=== PATIENT | female | born 1985 | race Caucasian/White ===

== ENCOUNTER 2020-01-13 18:08 | Emergency (ER) | payer OTHER ==
--- NOTE | 2020-01-13 18:19 | PDOC ---
Rapid Medical Evaluation Time Seen by Provider: 01/13/20 18:17 Medical Evaluation: Allergies Allergy/AdvReac Type Severity Reaction Status Date / Time No Known Allergies Allergy Verified 08/13/19 08:48 01/13/20 18:17 I have performed a brief in-person examination on this patient. CC: left pelvic pain radiating to left flank x "days" PE: Left CVAT. left pelvic pain to palpation. Orders: urine Patient will proceed to ED for further evaluation. Discharge Disposition - Diagnosis Left flank pain - Referrals - Patient Instructions - Post Discharge Activity
[2020-01-13 18:21] VITALS: BP 145/94; TEMP 99.3; BMI 39.6
[2020-01-13] MEDS ORDERED: SODIUM CHLORIDE 0.9% 500 ML INFUS.BAG IV ONE (20:09)
[2020-01-13] MEDS ORDERED: ACETAMINOPHEN 1000 MG/100 ML VIAL (NON FORMULARY) IVPB ONE (20:09)
--- NOTE | 2020-01-13 20:10 | PDOC ---
History of Present Illness - General Chief Complaint: Pain Stated Complaint: PELVIC PAIN Time Seen by Provider: 01/13/20 18:17 History Source: Patient - History of Present Illness Initial Comments: 01/13/20 23:41 34-year-old female complaining of left pelvic pain, urinary frequency and left flank pain for the last 2 to 3 days. Denies fever/chills patient reports nausea. Patient denies abdominal pain. Patient has a history of hydronephrosis, diabetes currently not on medication has been prescribed metformin, UTI, kidney stones. 01/13/20 23:42 Past History - Medical History Allergies/Adverse Reactions: Allergies Allergy/AdvReac Type Severity Reaction Status Date / Time No Known Allergies Allergy Verified 01/13/20 18:17 Home Medications: Ambulatory Orders Vit No.130/Iron/Folic [ Vitamins] 1 each PO DAILY 12/18/13 Loratadine [Claritin] 10 mg PO DAILY #12 tablet 08/13/19 predniSONE [Deltasone -] 20 mg PO ASDIR #11 tablet 08/13/19 Cefuroxime Axetil [Cefuroxime] 500 mg PO BID #20 tablet 01/13/20 Anemia: No Asthma: No Cancer: No Cardiac Disorders: No CVA: No COPD: No CHF: No Dementia: No Diabetes: Yes (GESTATIONAL-DIET CONTROL) GI Disorders: No Disorders: No HTN: Yes (MILD PREECLAMPSIA) Hypercholesterolemia: No Kidney Stones: Yes Liver Disease: No Seizures: No Thyroid Disease: No - Surgical History Abdominal Surgery: No Appendectomy: No Cardiac Surgery: No Cholecystectomy: No Lung Surgery: No Neurologic Surgery: No Orthopedic Surgery: No - Reproductive History Is Patient Now?: No (#): 2 Para: 1 Cervical CA: No Dysfunctional Uterine Bleeding: No Ectopic : No Endometrial CA: No Endometriosis: No Ovarian CA: No Polycystic Ovaries: No Therapeutic (s) & number: Yes (2) Spontaneous : 0 - Immunization History Immunization Up to Date: Yes - Psycho-Social/Smoking History Smoking Status: No Smoking History: Never smoked Have you smoked in the past 12 months: No Number of Cigarettes Smoked Daily: 0 - Substance Abuse Hx (Audit-C & DAST Scrn) How often the patient has a drink containing alcohol: Never Score: In Men: 4 or > Positive; In Women: 3 or > Positive: 0 Screen Result (Pos requires Nsg. Audit-10AR): Negative In the last yr the pt used illegal drug/Rx for NonMed reason: No Score: Yes response is considered Positive: 0 Screen Result (Positive result requires Nsg. DAST-10): Negative *Physical Exam - Vital Signs Last Vital Signs Temp Pulse Resp BP Pulse Ox 99.3 F 104 H 18 145/94 100 01/13/20 18:18 01/13/20 18:18 01/13/20 18:18 01/13/20 18:18 01/13/20 18:18 - Physical Exam General Appearance: Yes: Appropriately Dressed Respiratory/Chest: positive: Lungs Clear, Normal Breath Sounds Cardiovascular: positive: Regular Rhythm, Regular Rate Female Pelvic Exam: positive: normal external exam, cervical os closed, adnexal tenderness (left adnexal tenderness) Gastrointestinal/Abdominal: positive: Normal Bowel Sounds, Soft. negative: Tender Musculoskeletal: positive: CVA Tenderness (L) Extremity: positive: Normal Capillary Refill, Normal Inspection Integumentary: positive: Normal Color, Dry, Warm Neurologic: positive: Fully Oriented, Alert, Normal Mood/Affect ED Treatment Course - LABORATORY CBC & Chemistry Diagram: 01/13/20 20:00 01/13/20 20:00 ED Progress Note - Progress Note Progress Note: 01/14/20 02:26 A: UTI; flank pain P: cbc cmp LFTS elevated: patient reports that has a history of blood LFTs being elevated. TVUS 01/14/20 02:27 Discharge - Discharge Information Problems reviewed: Yes Clinical Impression/Diagnosis: Left flank pain UTI (urinary tract infection) Qualifiers: Urinary tract infection type: acute cystitis Hematuria presence: without hematuria Qualified Code(s): N30.00 - Acute cystitis without hematuria Ovarian cyst Qualifiers: Laterality: bilateral Qualified Code(s): N83.201 - Unspecified ovarian cyst, right side Condition: Improved Disposition: HOME - Additional Discharge Information Prescriptions: Cefuroxime Axetil [Cefuroxime] 500 mg PO BID #20 tablet - Follow up/Referral - Patient Discharge Instructions Patient Printed Discharge Instructions: Urinary Tract Infection Additional Instructions: Drink plenty of fluids Take ibuprofen every 6 hours as needed for pain Take cefuroxime as prescribed Follow-up with your primary care doctor as soon as possible. You need to repeat urine test once your antibiotic is completed. We will call you if you're antibiotic needs to be changed. - Post Discharge Activity Work/Back to School Note: Back to Work
[2020-01-13] MEDS ORDERED: ACETAMINOPHEN INJECTION 100 ML IVPB ONE (20:14)
[2020-01-13 21:06] LABS: BASO % 0.8 % (0-2.0); EOS % 5.6 % (0-4.5); HEMATOCRIT 40.3 % (32.4-45.2); HEMOGLOBIN 12.9 GM/dL (10.7-15.3); LYMPH % 27.5 % (8-40); MCH 23.4 pg (25.7-33.7); MCHC 32.1 g/dl (32.0-36.0); MEAN CELL VOLUME 72.8 fl (80-96); MONO % 4.9 % (3.8-10.2); NEUT % 61.2 % (42.8-82.8); PLATELET COUNT 461 K/MM3 (134-434); RBC 5.54 M/mm3 (3.60-5.2); RDW 15.5 % (11.6-15.6); WHITE BLOOD COUNT 14.1 K/mm3 (4.0-10.0)
[2020-01-13 21:14] LABS: BILIRUBIN,TOTAL 0.3 mg/dL (0.2-1); BLOOD UREA NITROGEN 6.8 mg/dL (7-18); CALCIUM 9.4 mg/dL (8.5-10.1); CREATININE 0.7 mg/dL (0.55-1.3); POTASSIUM 4.4 mmol/L (3.5-5.1); TOT PROT 8.9 g/dl (6.4-8.2)
[2020-01-13 21:23] LABS: EPI CELLS >36 /uL (0-25.1); HCG,QUALITATIVE URINE Negative; HYALINE CASTS 4 /uL (0-3.1); URINE APPEARANCE CLOUDY; URINE BACTERIA 143 /uL (0-1359); URINE BILIRUBIN NEGATIVE (NEGATIVE); URINE COLOR YELLOW; URINE GLUCOSE (UA) 2+ (NEGATIVE); URINE KETONE TRACE (NEGATIVE); URINE LEUK ESTERASE NEGATIVE (NEGATIVE); URINE NITRITE NEGATIVE (NEGATIVE); URINE PROTEIN 2+ (NEGATIVE); URINE RBC 12 /uL (0-23.9); URINE UROBILINOGEN 0.2 mg/dL (0.2-1.0); URINE WBC 44 /uL (0-25.8)
[2020-01-13] MEDS ORDERED: CEFTRIAXONE 1,000 MG in DEXTROSE 5%-WATER - 50 ML IVPB ONE (22:58)
[2020-01-13] MEDS ORDERED: cefTRIAXone SODIUM 1 GM VIAL ONE (23:16)
[2020-01-14 00:03] VITALS: PULSE 95
== END 2020-01-14 00:13 | disposition home or self-care (01) ==
LOC: JER 18:08
PROC: 3E03329 Introduction of Other Anti-infective into Peripheral Vein, Percutaneous Approach (ICD-10-PCS; principal; 2020-01-13)
PROC: 3E033GC Introduction of Other Therapeutic Substance into Peripheral Vein, Percutaneous Approach (ICD-10-PCS; 2020-01-13)
DX: N30.00 Acute cystitis without hematuria (principal); N83.201 Unspecified ovarian cyst, right side
CPT/HCPCS: 36415; 76830-TC; 80053; 81003; 84703; 85025; 87077; 87086; 99284-25; J0131

== ENCOUNTER 2020-01-16 19:44 | Inpatient (IN) | payer OTHER ==
[2020-01-16 19:55] VITALS: BMI 39.6
--- OUTSIDE RECORDS SUMMARY | 2020-01-16 20:12 | XMS ---
:1985 Author Organization [facility] Support Name Relationship Address Phone KHARI GOODEN PARTNER [address] [place] [address] [address] ALERT [place] [address] [place] [address] NERY MULTANI MOTHER [address] [phone] [place] [address] NERY MULTANI Unavailable [address] [place] [address] Re-disclosure Warning The records that you are about to access may contain information from federally- assisted alcohol or drug abuse programs. If such information is present, then the following federally mandated warning applies: This information has been disclosed to you from records protected by federal confidentiality rules (42 CFR part 2). The federal rules prohibit you from making any further disclosure of this information unless further disclosure is expressly permitted by the written consent of the person to whom it pertains or as otherwise permitted by 42 CFR part 2. A general authorization for the release of medical or other information is NOT sufficient for this purpose. The Federal rules restrict any use of the information to criminally investigate or prosecute any alcohol or drug abuse patient.The records that you are about to access may contain highly sensitive health information, the redisclosure of which is protected by Article 27-F of the [place] State Public Health law. If you continue you may haveaccess to information: Regarding HIV / AIDS; Provided by facilities licensed or operated by the [facility] Office of Mental Health; or Provided by the [facility] Office for People With Developmental Disabilities. If such information is present, then the following [facility] mandated warning applies: This information has been disclosed to you from confidential records which are protected by state law. State law prohibits you from making any further disclosure of this information without the specific written consent of the person to whom it pertains, or as otherwise permitted by law. Any unauthorized further disclosure in violation of state law may result in a fine or snf sentence or both. A general authorization for the release of medical or other information is NOT sufficient authorization for further disclosure. Insurance Providers Payer name Policy type Policy ID Covered Covered republican's Policy P jacky / Coverage republican ID relationship to Dietrich Inf ormation type dietrich [facility] [id number] [place] [id number] [facility] [id number] [employer] [id number] SP [id number] EXCHANGE HREP Results ID Date Data Source [id number] 09/25/2019 09:54:00 AM EDT [facility] Name Value Range Interpretation Description Data Sup porting Code Source(s) Document(s ) SARS [facility] CORONAVIRUS 2 RNA This lab was ordered by [facility] and reported by [facility]. ID Date Data Source [id number] 09/20/2019 11:41:00 AM EDT [facility] Name Value Range Interpretation Code Description Data Edith rce(s) Supporting Document(s ) COV2 [facility] This lab was ordered by MARILEE lowe nd reported by [facility]. ID Date Data Source [id number] 09/12/2019 07:40:00 AM EDT [facility] Name Value Range Interpretation Code Description Data Edith rce(s) Supporting Document(s ) COV2 [facility] This lab was ordered by MARILEE lowe nd reported by [facility]. ID Date Data Source [id number] 09/02/2019 09:25:00 AM EDT [facility] Name Value Range Interpretation Code Description Data Edith rce(s) Supporting Document(s ) COV2 [facility] This lab was ordered by MARILEE lowe nd reported by [facility]. ID Date Data Source [id number] 08/13/2019 11:02:00 AM EDT [facility] Name Value Range Interpretation Code Description Data Edith rce(s) Supporting Document(s ) COV2 [facility] This lab was ordered by MARILEE lowe nd reported by [facility]. Procedure
--- NOTE | 2020-01-16 21:39 | PDOC ---
History of Present Illness - General Chief Complaint: Pain, Acute Stated Complaint: LT SIDE ABD PAIN Time Seen by Provider: 01/16/20 21:27 Past History - Medical History Allergies/Adverse Reactions: Allergies Allergy/AdvReac Type Severity Reaction Status Date / Time No Known Allergies Allergy Verified 01/13/20 18:17 Home Medications: Ambulatory Orders Vit No.130/Iron/Folic [ Vitamins] 1 each PO DAILY 12/18/13 Loratadine [Claritin] 10 mg PO DAILY #12 tablet 08/13/19 predniSONE [Deltasone -] 20 mg PO ASDIR #11 tablet 08/13/19 Cefuroxime Axetil [Cefuroxime] 500 mg PO BID #20 tablet 01/13/20 Anemia: No Asthma: No Cancer: No Cardiac Disorders: No CVA: No COPD: No CHF: No Dementia: No Diabetes: Yes (GESTATIONAL-DIET CONTROL) GI Disorders: No Disorders: No HTN: Yes (MILD PREECLAMPSIA) Hypercholesterolemia: No Kidney Stones: Yes Liver Disease: No Seizures: No Thyroid Disease: No - Surgical History Abdominal Surgery: No Appendectomy: No Cardiac Surgery: No Cholecystectomy: No Lung Surgery: No Neurologic Surgery: No Orthopedic Surgery: No - Reproductive History Is Patient Now?: No (#): 2 Para: 1 Cervical CA: No Dysfunctional Uterine Bleeding: No Ectopic : No Endometrial CA: No Endometriosis: No Ovarian CA: No Polycystic Ovaries: No Therapeutic (s) & number: Yes (2) Spontaneous : 0 - Immunization History Immunization Up to Date: Yes - Psycho-Social/Smoking History Smoking Status: No Smoking History: Never smoked Have you smoked in the past 12 months: No Number of Cigarettes Smoked Daily: 0 - Substance Abuse Hx (Audit-C & DAST Scrn) How often the patient has a drink containing alcohol: Never Score: In Men: 4 or > Positive; In Women: 3 or > Positive: 0 Screen Result (Pos requires Nsg. Audit-10AR): Negative In the last yr the pt used illegal drug/Rx for NonMed reason: No Score: Yes response is considered Positive: 0 Screen Result (Positive result requires Nsg. DAST-10): Negative *Physical Exam - Vital Signs Last Vital Signs Temp Pulse Resp BP Pulse Ox 99 F 120 H 19 160/96 98 01/16/20 19:52 01/16/20 19:52 01/16/20 19:52 01/16/20 19:52 01/16/20 19:52 ED Treatment Course - LABORATORY CBC & Chemistry Diagram: 01/16/20 22:00 01/16/20 22:00 Medical Decision Making - Medical Decision Making 01/16/20 22:19 HPI: 34yo F hx hydronephrosis of L kidney (hx duplicated ureters s/p surgery as infant), DM (currently not on medication, has been prescribed metformin), frequent UTIs/pyelo (usually prescribed macrobid or bactrim if UTI; states has resistance to ciprofloxacin and levofloxacin when has pyelo but does not remembe r which med works for her; last UTI 1mo ago), hx multiple L-sided kidney stones (s/p stents and lithotripsies), and recent ED visit 01/13/20 for L-sided pain presents from home for continued L-sided pain and generalized weakness. Pt states pain is constant gradual onset no improvement with tylenol (last @1800) or motrin (last this AM) L-sided pain from L kidney/flank to LLQ area nonradiating nonmoving. Denies hematuria or dysuria or frequency, but states urinating less and concerned for obstruction. States pain feels like her usual chronic intermittent L-sided pressure type pain that she gets when her kidney gets swollen from unknown cause and it normally resolves on its own, whereas this time it's going longer than usual and is worse than usual. Denies F/C, N/V, vaginal bleeding or discharge or pain, CP, SOB, sick contacts, trauma. 01/13/20 visit: -TVUS simple cyst/dominant follicle in L ovary measuring 1.9 x 1.4cm, normal vascular flow in both ovaries w/o e/o torsion. -Labs notable for WBC 14.1, elevated LFTs, UA contaminated but possible UTI and 12 RBCs. UC contaminated, multiple organisms present, probable colonization strep agalactiae group B -Discharge on cefuroxime which pt has been taking, last took at 0900 this AM Urologist: Dr Abdulaziz Choudhary in [place] PCP: in [place] PE: L CVA tenderness Benign abdomen Tachycardic -CBC,CMP,UA/UC -US bladder/kidneys -Toradol -1L NS 01/16/20 22:27 Labs reviewed. WBC increased from 14.1 to 17.8, elevated LFTs, glucose 324, UA negative for UTI (but been taking abx x3 days) 01/17/20 02:09 US reviewed: moderate to severe hydronephrosis L kidney CT reviewed: chronic left hydronephrosis. If there is clinical suspicion for pyelo, correlate with UA or CT w/IV contrast. Due to complicated L kidney hx/medical issues and rising WBC count and continued pain despite outpatient antibiotics, high concern for pyelonephritis. Will admit for IV antibiotics. -EKG -Ceftriaxone Discharge - Discharge Information Problems reviewed: Yes Clinical Impression/Diagnosis: Left flank pain, Leukocytosis, Pyelonephritis Condition: Stable - Admission Yes - Follow up/Referral - Patient Discharge Instructions - Post Discharge Activity
[2020-01-16] MEDS ORDERED: SODIUM CHLORIDE 0.9% 500 ML INFUS.BAG IV ONE (22:07)
[2020-01-16] MEDS ORDERED: KETOROLAC TROMETHAMINE 15 MG/ML VIAL IVPUSH ONE (22:07)
[2020-01-16] MEDS ORDERED: KETOROLAC TROMETHAMINE 15 MG/ML VIAL ONE (22:09)
[2020-01-16 22:22] LABS: EOS % 3.8 % (0-4.5); HEMOGLOBIN 13.3 GM/dL (10.7-15.3); LYMPH % 21.8 % (8-40); MCH 23.3 pg (25.7-33.7); MCHC 32.5 g/dl (32.0-36.0); MEAN CELL VOLUME 71.6 fl (80-96); MEAN PLT VOLUME 7.5 fl (7.5-11.1); MONO % 5.3 % (3.8-10.2); NEUT % 68.1 % (42.8-82.8); PLATELET COUNT 489 K/MM3 (134-434); RBC 5.72 M/mm3 (3.60-5.2); RDW 15.2 % (11.6-15.6); WHITE BLOOD COUNT 17.8 K/mm3 (4.0-10.0)
[2020-01-16 22:46] LABS: EPI CELLS 17 /uL (0-25.1); HCG,QUALITATIVE URINE NEGATIVE; HYALINE CASTS 2 /uL (0-3.1); URINE APPEARANCE CLEAR; URINE BACTERIA 37 /uL (0-1359); URINE BILIRUBIN NEGATIVE (NEGATIVE); URINE COLOR YELLOW; URINE GLUCOSE (UA) 3+ (NEGATIVE); URINE KETONE TRACE (NEGATIVE); URINE LEUK ESTERASE NEGATIVE (NEGATIVE); URINE NITRITE NEGATIVE (NEGATIVE); URINE PROTEIN 1+ (NEGATIVE); URINE RBC 8 /uL (0-23.9); URINE UROBILINOGEN 0.2 mg/dL (0.2-1.0); URINE WBC 7 /uL (0-25.8)
--- NOTE | 2020-01-16 22:50 | PDOC ---
Documentation entered by Isabel Merino SCRIBE, acting as scribe for Cristal Cao DO. Cristal Cao, : This documentation has been prepared by the Wilber bernard Brenda, SCRIBE, under my direction and personally reviewed by me in its entirety. I confirm that the documentation accurately reflects all work, treatment, procedures, and medical decision making performed by me. Attending Attestation - Resident Resident Name: Soniya Manzano - ED Attending Attestation I have performed the following: I have examined & evaluated the patient, The case was reviewed & discussed with the resident, I agree w/resident's findings & plan, Exceptions are as noted - HPI HPI: 01/16/20 23:49 The patient is a 34 year old female with a significant PMH of hydronephrosis of L kidney (hx duplicated ureters s/p surgery as ), DM (currently not on medication, has been prescribed metformin), frequent UTIs (usually prescribed macrobid or bactrim; last 1mo ag), hx multiple L-sided kidney stones (s/p stents and lithotripsies), and recent ED visit 01/13/20 for L-sided pain who presents to the ED for evaluation of continued left sided pain along with general weakness. Pain is not improved with Tylenol. Allergies: NKA - Physicial Exam PE: 01/16/20 22:12 GENERAL: Awake, alert, and fully oriented, in no acute distress NECK: Normal ROM, supple, no lymphadenopathy, JVD, or masses LUNGS: Breath sounds equal, clear to auscultation bilaterally. No wheezes, and no crackles HEART: (+) Tachy Regular rhythm, normal S1 and S2, no murmurs, rubs or gallops ABDOMEN: (+) Left flank tenderness. (+) Left CVA tenderness. Soft, nontender abdomen, normoactive bowel sounds. No guarding, no rebound. No masses EXTREMITIES: Normal range of motion, no edema. No clubbing or cyanosis. No cords, erythema, or tenderness NEUROLOGICAL: Cranial nerves II through XII grossly intact. Normal speech, normal gait SKIN: Warm, Dry, normal turgor, no rashes or lesions noted. - Medical Decision Making 01/16/20 22:24 a/p: 34yo female with hx of ureteral stones, ureteral sx, uti with urinary freq, hesitancy and L flank pain -on abx for uti x 2 days without worsening pain, flank pain -concern for pyelo vs renal stone that is infected -tachy upon arrival -L cva ttp -will send labs, repeat ua -will send for renal ultrasound -will medicate with ivf and with pain control -will monitor and reassess 01/16/20 23:02 wbc 18 increased ua shows ketones, blood 01/17/20 00:07 pt pending ultrasounds 01/17/20 00:08 pt has been signed out to the oncoming ed physician pending renal ultrasound and further eval Discharge - Discharge Information Problems reviewed: Yes Clinical Impression/Diagnosis: Left flank pain, Leukocytosis - Follow up/Referral - Patient Discharge Instructions - Post Discharge Activity
[2020-01-16 23:06] LABS: ALBUMIN 3.8 g/dl (3.4-5.0); BILIRUBIN,TOTAL 0.2 mg/dL (0.2-1); CALCIUM 9.8 mg/dL (8.5-10.1); CREATININE 0.8 mg/dL (0.55-1.3); POTASSIUM 3.9 mmol/L (3.5-5.1); TOT PROT 8.7 g/dl (6.4-8.2)
[2020-01-17] MEDS ORDERED: CEFTRIAXONE 1 GM in DEXTROSE 5%-WATER - 100 ML IVPB ONE (02:14)
[2020-01-17] MEDS ORDERED: CEFTRIAXONE 1 GM/50 ML BAG ONE (02:33)
--- NOTE | 2020-01-17 03:06 | PN ---
Teaching Attending Note Name of Resident: Carroll Melchor ATTENDING PHYSICIAN STATEMENT I saw and evaluated the patient. I reviewed the resident's note and discussed the case with the resident. I agree with the resident's findings and plan as documented. SUBJECTIVE: Patient is a 34 year old woman with a PMH of Hydronephrosis of left kidney, Duplicated ureters (s/p surgery as ), NIDDM (not taking prescribed Metformin), Frequent UTIs (usually prescribed Macrobid or Bactrim; last 1 month ag0), Multiple left-sided kidney stones (s/p stents and lithotripsies) and HTN?, Preeclampsia who presents to the ER for evaluation of continued left sided flank pain and general weakness. Was evaluated in our ER on 01/13/2020 and discharged on Cefuroxime for presumed UTI - urinalysis was unremarkable. LMP was 1 week ago. Pain has not improved with Tylenol. Patient reports urinating less and concerned for obstruction but denies dysuria, frequency or urgency. Patient denies chest pain, shortness of breath, headache, palpitations, dizziness, fever, chills, nausea, vomiting, diarrhea, constipation, melena, hematochezia or hematuria. Denies alcohol, tobacco or illicit drug use. No sick contacts or recent travels. Family history is unremarkable. OBJECTIVE: Alert Vital Signs Period Temp Pulse Resp BP Sys/Bartholomew Pulse Ox Last 24 Hr 97.9 F-99 F 92-120 18-19 138-160/85-96 96-98 HEENT: No Jaundice, eye redness or discharge, PERRLA, EOMI. Normocephalic, atraumatic. External ears are normal and hearing is grossly intact. No nasal discharge. Neck: Supple, nontender. No palpable adenopathy or thyromegaly. No JVD Chest: Good effort. Clear to auscultation and percussion. Heart: Regular. No S3, rub or murmur Abdomen: Not distended, soft, left CVAT and no HSM. No rebound or guarding. Normal bowel sounds. Ext: Peripheral pulses intact. No leg edema. Skin: Warm and dry. No petechiae, rash or ecchymosis. Neuro: Alert. Oriented x3. CN 2-12 grossly intact. Sensation grossly intact in all four extremities and DTR are symmetric. Psych: Appropriate mood and affect. Good insight. Home Medications Medication Instructions Recorded Vit No.130/Iron/Folic 1 each PO DAILY 12/18/13 [ Vitamins] Loratadine [Claritin] 10 mg PO DAILY #12 tablet 08/13/19 predniSONE [Deltasone -] 20 mg PO ASDIR #11 tablet 08/13/19 Cefuroxime Axetil [Cefuroxime] 500 mg PO BID #20 tablet 01/13/20 Abnormal Lab Results 01/16/20 01/16/20 01/16/20 22:00 22:00 22:15 WBC 17.8 H RBC 5.72 H MCV 71.6 L MCH 23.3 L Plt Count 489 H Absolute Neuts (auto) 12.1 H Sodium 132 L Chloride 95 L Random Glucose 324 H AST 81 H ALT 101 H Alkaline Phosphatase 171 H Total Protein 8.7 H Ur Specific [place] 1.037 H Urine Protein 1+ H Urine Glucose (UA) 3+ H Urine Ketones Trace H Current Medications Generic Name Dose Route Start Last Admin Trade Name Freq PRN Reason Stop Dose Admin Enoxaparin Sodium 40 mg 01/17/20 10:00 Lovenox - SQ DAILY [facility] Insulin Aspart 1 vial 01/17/20 07:00 Novolog Vial Sliding Scale - SQ ACHS [facility] Protocol Tamsulosin HCl 0.4 mg 01/17/20 08:30 Flomax - PO DAILY@0830 [facility] ASSESSMENT AND PLAN: 1. Left hydronephrosis/?Pyelonephritis - Hydronephrosis and kidney stone may explain flank pain. Leukocytosis likely partly due to Prednisone - unclear why she is on Prednisone. Preliminary report of of ultrasound showed moderate to severe hydronephrosis left kidney. CT scan of abdomen/pelvis without contrast shows chronic left hydronephrosis. CXR pending. Sepsis workup done. Will treat with IV Zosyn, IV NS, Flomax, get PT/INR, strain patients urine, keep patient NPO, use IV Morphine for pain control, consult Urology and refer to Nephrology for stone disease risk factor evaluation. Consult ID. Hyponatremia likely partly due to hyperglycemia. Will limit free water intake and correct hyperglycemia. LFTs are improving compared to values from 01/13/2020 - may be due to hepatic steatosis. Will get liver sonogram, hepatitis serology and trend LFTs. Viral testing for COVID-19 ordered and patient placed on airborne, droplet and contact isolation. EKG shows NSR at 90/minute and QTc 477 with no significant acute ischemic ST-T wave changes. Will avoid drugs that may prolong QTc. Will continue comprehensive care for all of patients comorbid conditions. 2. Uncontrolled DM Wll get HbA1c, hold the home diabetes drugs and implement sliding scale insulin regimen. Provide comprehensive diabetes care with patient teaching and counseling about the importance of adherence to prescribed diabetes regimen, euglycemia, eye care and foot care. 3. Obesity Counseled on the risks associated with obesity. Will provide patient all the necessary assistance, counseling and positive reinforcement to facilitate weight loss. Consult mini bar attendant. 4. Hypertension? May have undiagnosed "primary" hypertension following preeclampsia. Will monitor BP closely, get urine protein/creatinine ratio and start Lisinopril 20 mg q HS. Subsequently, will revise regimen to ensure [id number] excellent BP control. Patient counseled on the injurious effects of uncontrolled hypertension. Nonpharmacologic measures to control hypertension like weight loss, salt restriction and exercise stressed. Importance of adherence to treatment regimen and attainment of normotension emphasized. 5. DVT prophylaxis - Lovenox 40 mg SQ q 24 hours. 6. Advance directives - Full code
--- OUTSIDE RECORDS SUMMARY | 2020-01-17 03:23 | XMS ---
:1985 Author Organization [facility] Support Name Relationship Address Phone KHARI GOODEN PARTNER [address] [place] [address] [address]UERO ALERT [place] [place] [address] NERY MULTANI MOTHER [address] [place] [address] NERY MULTANI Unavailable [address] [place] [address] Re-disclosure Warning The records that you are [...] is protected by Article 27-F of the [place] Public Health law. If you continue you may haveaccess to information: Regarding HIV / AIDS; Provided by facilities licensed or operated by the [facility] Office of Mental Health; or Provided by the [facility] Office for People With Developmental Disabilities. If such information is present, then the following [facility] mandated warning applies: This information has [...] law may result in a fine or mcc sentence or both. A general authorization for the release of medical or other information is NOT sufficient authorization for further disclosure. Insurance Providers Payer name Policy type Policy ID Covered Covered libertarian's Policy P jacky / Coverage libertarian ID relationship to Dietrich Inf ormation type dietrich [facility] [id number] [place] [id number] [facility] [id number] [employer] [id number] SP [id number] EXCHANGE HREP Results ID Date Data Source [id number] 09/25/2019 09:54:00 AM EDT [facility] Name Value Range Interpretation Description Data Sup porting Code Source(s) Document(s ) SARS [facility] CORONAVIRUS 2 RNA This lab was ordered by [facility] and reported by [facility]. ID Date Data Source [id number] 09/20/2019 11:41:00 AM EDT [facility] Name Value Range Interpretation Code Description Data Edith rce(s) Supporting Document(s ) COV2 [facility] This lab was ordered by MARILEE lowe nd reported by [facility]. ID Date Data Source [id number] 09/12/2019 07:40:00 AM EDT [facility] Name Value Range Interpretation Code Description Data Edith rce(s) Supporting Document(s ) COV2 [facility] This lab was ordered by MRAILEE lowe nd reported by [facility]. ID Date Data Source [id number] 09/02/2019 09:25:00 AM EDT [facility] Name Value Range Interpretation Code Description Data Edith rce(s) Supporting Document(s ) COV2 [facility] This lab was ordered by MARILEE lowe nd reported by [facility]. ID Date Data Source [id number] 08/13/2019 11:02:00 AM EDT [facility] Name Value Range Interpretation Code Description Data Edith rce(s) Supporting Document(s ) COV2 [facility] This lab was ordered by MARILEE lowe nd reported by [facility]. Procedure
[2020-01-17] MEDS ORDERED: KETOROLAC TROMETHAMINE 15 MG/ML VIAL IVPUSH ONE (04:07)
[2020-01-17] MEDS ORDERED: KETOROLAC TROMETHAMINE 15 MG/ML VIAL ONE (04:08)
--- NOTE | 2020-01-17 04:17 | HP ---
CHIEF COMPLAINT: flank pain Urologist: Dr Abdulaziz Choudhary in [place] PCP: in [place] HISTORY OF PRESENT ILLNESS: Ms. 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 Was evaluated in our ER on 01/13/2020 and discharged on Cefuroxime for presumed UTI - urinalysis was unremarkable. Patient described the pain to be dull and achey, without radiation into her groin or abdomen. She rated the pain to be an 8/10 during its worst course. The patient reports there was no resolution with Tylenol or Advil. Pain has not improved with Tylenol. The patient denies fevers, chills, diarrhea, chest pain, nausea, vomiting, dysuria, burning on urination, hematuria, however she reports increase in urgency without much urine output. Family history is unremarkable. ER course was notable for: (1)US reviewed: moderate to severe hydronephrosis L kidney (2)CT reviewed: chronic left hydronephrosis. If there is clinical suspicion for pyelo, correlate with UA or CT w/IV contrast. (3)Ceftriaxone Recent Travel: denies PAST MEDICAL HISTORY: PAST SURGICAL HISTORY: Social History: Smoking: denies Alcohol: denies Drugs: denies Allergies No Known Allergies Allergy (Verified 01/13/20 18:17) HOME MEDICATIONS: Home Medications Medication Instructions Recorded Vit No.130/Iron/Folic 1 each PO DAILY 12/18/13 [ Vitamins] Loratadine [Claritin] 10 mg PO DAILY #12 tablet 08/13/19 predniSONE [Deltasone -] 20 mg PO ASDIR #11 tablet 08/13/19 Cefuroxime Axetil [Cefuroxime] 500 mg PO BID #20 tablet 01/13/20 REVIEW OF SYSTEMS as above PHYSICAL EXAMINATION Vital Signs - 24 hr 01/16/20 01/17/20 01/17/20 19:52 00:00 02:25 Temperature 99 F 97.9 F Pulse Rate 120 H Pulse Rate [ 100 H 92 H Left Radial] Respiratory 19 18 18 Rate Blood Pressure 160/96 Blood Pressure 139/88 138/85 [Left Arm] O2 Sat by Pulse 98 97 96 Oximetry (%) GENERAL: Awake, alert, and fully oriented, in no acute distress. HEAD: Normal with no signs of trauma. LUNGS: Breath sounds equal, clear to auscultation bilaterally. No wheezes, and no crackles. No accessory muscle use. HEART: Regular rate and rhythm, normal S1 and S2 without murmur, rub or gallop. ABDOMEN: Soft, nontender, not distended, normoactive bowel sounds, no guarding, no rebound, no masses. No hepatomegaly or splenomegaly. RENAL: + CVA TENDERNESS ON THE LEFT SIDE LOWER EXTREMITIES: 2+ pulses, warm, well-perfused. No calf tenderness. No peripheral edema. Laboratory Results - last 24 hr 01/16/20 01/16/20 01/16/20 22:00 22:00 22:15 WBC 17.8 H RBC 5.72 H Hgb 13.3 Hct 41.0 MCV 71.6 L MCH 23.3 L MCHC 32.5 RDW 15.2 Plt Count 489 H MPV 7.5 Absolute Neuts (auto) 12.1 H Neutrophils % 68.1 Lymphocytes % 21.8 D Monocytes % 5.3 Eosinophils % 3.8 Basophils % 1.0 Nucleated RBC % 0 Sodium 132 L Potassium 3.9 Chloride 95 L Carbon Dioxide 28 Anion Gap 8 BUN 14.0 Creatinine 0.8 Est GFR (CKD-EPI)AfAm 113.06 Est GFR (CKD-EPI)NonAf 97.55 Random Glucose 324 H Calcium 9.8 Total Bilirubin 0.2 AST 81 H ALT 101 H Alkaline Phosphatase 171 H Total Protein 8.7 H Albumin 3.8 Urine Color Yellow Urine Appearance Clear Urine pH 5.0 Ur Specific [place] 1.037 H Urine Protein 1+ H Urine Glucose (UA) 3+ H Urine Ketones Trace H Urine Blood Trace Urine Nitrite Negative Urine Bilirubin Negative Urine Urobilinogen 0.2 Ur Leukocyte Esterase Negative Urine WBC (Auto) 7 Urine RBC (Auto) 8 Urine Casts (Auto) 2 U Epithel Cells (Auto) 17 Urine Bacteria (Auto) 37 Urine HCG, Qual Negative ASSESSMENT/PLAN: Ms. 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 Preliminary report of of ultrasound showed moderate to severe hydronephrosis left kidney CT scan of abdomen/pelvis without contrast shows chronic left hydronephrosis. #hydronephrosis - 7mm right nonobstructing renal calculus - no hydronephrosis on the r side or renal mass - Flank pain - -Chest Xray - Moderate to severe hydronehrosis of left kidney without obvious calculus. No obvious renal mass. - consult urology - consult nephrology - suggest IV Zosyn - Flomax - PT/INR - strain urine - NPO - suggest IV Morphine for pain control #Hyponatremia - 2t2 hyperglycemia - when corrected for glucose - 136 wnl #Transaminitis - LFT trending down since last visit - possible hepatic steatosis found on CT - hepatitis serology - following LFT # DM Wll get HbA1c, - sliding scale insulin #Hypertension? possibly precipitated essential hypertension s/p pre-eclampsia effects. - urine protein/creatinine ratio - Lisinopril 20 mg q HS #DVT prophylaxis - Lovenox 40 mg SQ q 24 hours. #Advance directives - Full code ATTENDING PHYSICIAN STATEMENT I saw and evaluated the patient. I reviewed the resident's note and discussed the case with the resident. I agree with the resident's findings and plan as documented. SUBJECTIVE: OBJECTIVE: ASSESSMENT AND PLAN:
[2020-01-17] MEDS ORDERED: SODIUM CHLORIDE 1,000 ML IV SCH (06:30)
[2020-01-17 06:36] VITALS: BP 129/76; PULSE 90; TEMP 97.8
[2020-01-17] MEDS: INSULIN SLIDING SCALE (NOVOLOG) 1 VIAL SQ SCH ×2 (07:55→11:47)
[2020-01-17] MEDS ORDERED: TAMSULOSIN HCL 0.4 MG CAP PO SCH (08:30)
[2020-01-17] MEDS ORDERED: TAMSULOSIN HCL 0.4 MG CAP ONE (08:50)
[2020-01-17] MEDS ORDERED: ENOXAPARIN NA (PORCINE) 40 MG/0.4 ML DISP.SYRIN SQ ONE (08:50)
[2020-01-17] MEDS ORDERED: ENOXAPARIN NA (PORCINE) 40 MG/0.4 ML DISP.SYRIN SQ SCH (10:00)
[2020-01-17 10:03] LABS: BASO % 0.8 % (0-2.0); EOS % 6.3 % (0-4.5); HEMATOCRIT 37.8 % (32.4-45.2); HEMOGLOBIN 12.2 GM/dL (10.7-15.3); MCH 23.3 pg (25.7-33.7); MCHC 32.3 g/dl (32.0-36.0); MEAN CELL VOLUME 72.2 fl (80-96); MEAN PLT VOLUME 7.3 fl (7.5-11.1); MONO % 5.3 % (3.8-10.2); NEUT % 66.6 % (42.8-82.8); PLATELET COUNT 415 K/MM3 (134-434); RBC 5.24 M/mm3 (3.60-5.2); RDW 15.1 % (11.6-15.6); WHITE BLOOD COUNT 13.4 K/mm3 (4.0-10.0)
[2020-01-17 10:20] LABS: INR 1.13 (0.83-1.09); PROTHROMBIN TIME (PATIENT) 13.4 SEC (9.7-13.0)
--- NOTE | 2020-01-17 10:32 | EKG ---
Test Reason : Blood Pressure : / mmHG Vent. Rate : 090 BPM Atrial Rate : 090 BPM P-R Int : 142 ms QRS Dur : 100 ms QT Int : 390 ms P-R-T Axes : 042 009 012 degrees QTc Int : 477 ms NORMAL SINUS RHYTHM NONSPECIFIC T WAVE ABNORMALITY WHEN COMPARED WITH ECG OF 27-FEB-2011 20:11, NO SIGNIFICANT CHANGE WAS FOUND Confirmed by ZANE CRUZ MD ([id number]) on 01/17/2020 10:32:19 AM Referred By: Confirmed By:ZANE CRUZ MD
[2020-01-17 10:33] LABS: ALBUMIN 3.2 g/dl (3.4-5.0); BILIRUBIN,TOTAL 0.9 mg/dL (0.2-1); BLOOD UREA NITROGEN 11.1 mg/dL (7-18); CALCIUM 8.9 mg/dL (8.5-10.1); CREATININE 0.5 mg/dL (0.55-1.3); PHOSPHOROUS 4.4 mg/dL (2.5-4.9); TOT PROT 7.5 g/dl (6.4-8.2)
--- NOTE | 2020-01-17 13:35 | PN ---
Teaching Attending Note Name of Resident: Nicolás Stevenson ATTENDING PHYSICIAN STATEMENT I saw and evaluated the patient. I reviewed the resident's note and discussed the case with the resident. I agree with the resident's findings and plan as documented. SUBJECTIVE: Complains of ongoing L Flank pain. No fever/chills. No nausea/vomiting. OBJECTIVE: Afebrile, Hemodynamically stable. Last Vital Signs Temp Pulse Resp BP Pulse Ox 97.8 F 90 19 129/76 97 01/17/20 06:35 01/17/20 06:35 01/17/20 06:35 01/17/20 06:35 01/17/20 06:35 HEENT - Atraumatic, Normocephalic. Heart - S1, S2, RRR Lungs - clear to auscultation Abdomen - L CVA tenderness, L flank tenderness. Soft. Bowel Sounds normal. Extremities - no edema, no calf tenderness. Neuro - AAO x 3. Tone/Power normal all extremities. Laboratory Results - last 24 hr 01/16/20 01/16/20 01/16/20 22:00 22:00 22:15 WBC 17.8 H RBC 5.72 H Hgb 13.3 Hct 41.0 MCV 71.6 L MCH 23.3 L MCHC 32.5 RDW 15.2 Plt Count 489 H MPV 7.5 Absolute Neuts (auto) 12.1 H Neutrophils % 68.1 Lymphocytes % 21.8 D Monocytes % 5.3 Eosinophils % 3.8 Basophils % 1.0 Nucleated RBC % 0 PT with INR INR PTT (Actin FS) Sodium 132 L Potassium 3.9 Chloride 95 L Carbon Dioxide 28 Anion Gap 8 BUN 14.0 Creatinine 0.8 Est GFR (CKD-EPI)AfAm 113.06 Est GFR (CKD-EPI)NonAf 97.55 POC Glucometer Random Glucose 324 H Hemoglobin A1c % Calcium 9.8 Phosphorus Magnesium Total Bilirubin 0.2 AST 81 H ALT 101 H Alkaline Phosphatase 171 H Total Protein 8.7 H Albumin 3.8 Urine Color Yellow Urine Appearance Clear Urine pH 5.0 Ur Specific [place] 1.037 H Urine Protein 1+ H Urine Glucose (UA) 3+ H Urine Ketones Trace H Urine Blood Trace Urine Nitrite Negative Urine Bilirubin Negative Urine Urobilinogen 0.2 Ur Leukocyte Esterase Negative Urine WBC (Auto) 7 Urine RBC (Auto) 8 Urine Casts (Auto) 2 U Epithel Cells (Auto) 17 Urine Bacteria (Auto) 37 Urine HCG, Qual Negative 01/17/20 01/17/20 01/17/20 07:35 09:36 09:36 WBC 13.4 H RBC 5.24 H Hgb 12.2 Hct 37.8 MCV 72.2 L MCH 23.3 L MCHC 32.3 RDW 15.1 Plt Count 415 MPV 7.3 L Absolute Neuts (auto) 8.9 H Neutrophils % 66.6 Lymphocytes % 21.0 Monocytes % 5.3 Eosinophils % 6.3 H Basophils % 0.8 Nucleated RBC % 0 PT with INR INR PTT (Actin FS) Sodium 136 Potassium 4.0 Chloride 100 Carbon Dioxide 29 Anion Gap 7 L BUN 11.1 Creatinine 0.5 L Est GFR (CKD-EPI)AfAm 148.42 Est GFR (CKD-EPI)NonAf 128.06 POC Glucometer 230 Random Glucose 201 H Hemoglobin A1c % Calcium 8.9 Phosphorus 4.4 Magnesium 2.0 Total Bilirubin 0.9 AST 75 H ALT 85 H Alkaline Phosphatase 132 H Total Protein 7.5 Albumin 3.2 L Urine Color Urine Appearance Urine pH Ur Specific [place] Urine Protein Urine Glucose (UA) Urine Ketones Urine Blood Urine Nitrite Urine Bilirubin Urine Urobilinogen Ur Leukocyte Esterase Urine WBC (Auto) Urine RBC (Auto) Urine Casts (Auto) U Epithel Cells (Auto) Urine Bacteria (Auto) Urine HCG, Qual 01/17/20 01/17/20 09:36 09:36 WBC RBC Hgb Hct MCV MCH MCHC RDW Plt Count MPV Absolute Neuts (auto) Neutrophils % Lymphocytes % Monocytes % Eosinophils % Basophils % Nucleated RBC % PT with INR 13.40 H INR 1.13 H PTT (Actin FS) 29.0 Sodium Potassium Chloride Carbon Dioxide Anion Gap BUN Creatinine Est GFR (CKD-EPI)AfAm Est GFR (CKD-EPI)NonAf POC Glucometer Random Glucose Hemoglobin A1c % 9.7 H Calcium Phosphorus Magnesium Total Bilirubin AST ALT Alkaline Phosphatase Total Protein Albumin Urine Color Urine Appearance Urine pH Ur Specific [place] Urine Protein Urine Glucose (UA) Urine Ketones Urine Blood Urine Nitrite Urine Bilirubin Urine Urobilinogen Ur Leukocyte Esterase Urine WBC (Auto) Urine RBC (Auto) Urine Casts (Auto) U Epithel Cells (Auto) Urine Bacteria (Auto) Urine HCG, Qual Current Medications Generic Name Dose Route Start Last Admin Trade Name Freq PRN Reason Stop Dose Admin Enoxaparin Sodium 40 mg 01/17/20 10:00 01/17/20 10:22 Lovenox - SQ Not Given DAILY [facility] Ceftriaxone Sodium 1 gm/ 50 mls @ 200 mls/hr 01/18/20 10:00 Dextrose IVPB DAILY [facility] Protocol Insulin Aspart 1 vial 01/17/20 07:00 01/17/20 11:47 Novolog Vial Sliding Scale - SQ Not Given ACHS [facility] Protocol Tamsulosin HCl 0.4 mg 01/17/20 08:30 01/17/20 08:54 Flomax - PO 0.4 mg DAILY@0830 [facility] Administration Home Medications Medication Instructions Recorded Hydrochlorothiazide [Hctz -] 25 mg PO DAILY 01/17/20 Venlafaxine HCl ER [Effexor Xr -] 150 mg PO DAILY 01/17/20 ASSESSMENT/PLAN: 34 year old female with history of Hydronephrosis L Kidney, duplicated ureters on L s/p Surgery in infancy, DM 2, Nephrolithiasis, frequent UTIs, currently on Cefuroxime for presumed UTI, presents with progressive L flank pain, increasing urgency, hesitancy. Renal US - mod to severe hydronephrosis L kidney, non-obstructing 7mm R renal stone. CT A/P - Hepatomegaly/fatty infiltrates/L [place]/s/p Cholecystectomy 1. Partially treated UTI Initial Urine Cx - contaminated Repeat urine Cx (while on Abx) pending. Afebrile, Hemodynamically Stable. Leukocytosis improving. Continue IV Ceftriaxone 2. L hydronephrosis, appears chronic Now with associated flank pain and CVA tenderness Urology consulted for eval and further recommendations. Started on Flomax. 3. Elevated Transaminases - sec to fatty liver s/p cholecystectomy remotely. Hepatitis serology pending. 4. DM 2, uncontrolled, A1c 9.7 Does not appear to be on anti-hyperglycemic medications at home. Will maintain on Novolog sliding scale as in-patient, will discharge on Metformin with Endocrinology referral. 5. HTN - HCTZ held for now. 6. Depression - continue Venlafaxine. DVT Px - Lovenox SQ
[2020-01-17] MEDS ORDERED: VENLAFAXINE HCL 75 MG E.R. CAPSULES PO SCH (14:00)
[2020-01-17] MEDS ORDERED: VENLAFAXINE HCL 75 MG TABLET ONE (15:33)
--- NOTE | 2020-01-17 16:03 | DS ---
Physical Exam: SUBJECTIVE: Patient seen and examined. LEFT AMA OBJECTIVE: Vital Signs Period Temp Pulse Resp BP Sys/Bartholomew Pulse Ox Last 24 Hr 97.8 F-99 F 90-120 18-19 129-160/76-96 96-98 PHYSICAL EXAM GENERAL: The patient is awake, alert, and fully oriented, in no acute distress. HEAD: Normal with no signs of trauma. EYES: PERRL, extraocular movements intact, sclera anicteric, conjunctiva clear. ENT: Ears normal, nares patent, oropharynx clear without exudates, moist mucous membranes. NECK: Trachea midline, full range of motion, supple. LUNGS: Breath sounds equal, clear to auscultation bilaterally, no wheezes, no crackles, no accessory muscle use. HEART: Regular rate and rhythm, S1, S2 without murmur, rub or gallop. ABDOMEN: Soft, nontender, nondistended, normoactive bowel sounds, no guarding, no rebound, no hepatosplenomegaly, no masses. EXTREMITIES: 2+ pulses, warm, well-perfused, no edema. CVA tenderness NEUROLOGICAL: Cranial nerves II through XII grossly intact. Normal speech, gait not observed. PSYCH: Normal mood, normal affect. SKIN: Warm, dry, normal turgor, no rashes or lesions noted. LABS Laboratory Results - last 24 hr 01/16/20 01/16/20 01/16/20 22:00 22:00 22:15 WBC 17.8 H RBC 5.72 H Hgb 13.3 Hct 41.0 MCV 71.6 L MCH 23.3 L MCHC 32.5 RDW 15.2 Plt Count 489 H MPV 7.5 Absolute Neuts (auto) 12.1 H Neutrophils % 68.1 Lymphocytes % 21.8 D Monocytes % 5.3 Eosinophils % 3.8 Basophils % 1.0 Nucleated RBC % 0 PT with INR INR PTT (Actin FS) Sodium 132 L Potassium 3.9 Chloride 95 L Carbon Dioxide 28 Anion Gap 8 BUN 14.0 Creatinine 0.8 Est GFR (CKD-EPI)AfAm 113.06 Est GFR (CKD-EPI)NonAf 97.55 POC Glucometer Random Glucose 324 H Hemoglobin A1c % Calcium 9.8 Phosphorus Magnesium Total Bilirubin 0.2 AST 81 H ALT 101 H Alkaline Phosphatase 171 H Total Protein 8.7 H Albumin 3.8 Urine Color Yellow Urine Appearance Clear Urine pH 5.0 Ur Specific [place] 1.037 H Urine Protein 1+ H Urine Glucose (UA) 3+ H Urine Ketones Trace H Urine Blood Trace Urine Nitrite Negative Urine Bilirubin Negative Urine Urobilinogen 0.2 Ur Leukocyte Esterase Negative Urine WBC (Auto) 7 Urine RBC (Auto) 8 Urine Casts (Auto) 2 U Epithel Cells (Auto) 17 Urine Bacteria (Auto) 37 Urine HCG, Qual Negative 01/17/20 01/17/20 01/17/20 07:35 09:36 09:36 WBC 13.4 H RBC 5.24 H Hgb 12.2 Hct 37.8 MCV 72.2 L MCH 23.3 L MCHC 32.3 RDW 15.1 Plt Count 415 MPV 7.3 L Absolute Neuts (auto) 8.9 H Neutrophils % 66.6 Lymphocytes % 21.0 Monocytes % 5.3 Eosinophils % 6.3 H Basophils % 0.8 Nucleated RBC % 0 PT with INR INR PTT (Actin FS) Sodium 136 Potassium 4.0 Chloride 100 Carbon Dioxide 29 Anion Gap 7 L BUN 11.1 Creatinine 0.5 L Est GFR (CKD-EPI)AfAm 148.42 Est GFR (CKD-EPI)NonAf 128.06 POC Glucometer 230 Random Glucose 201 H Hemoglobin A1c % Calcium 8.9 Phosphorus 4.4 Magnesium 2.0 Total Bilirubin 0.9 AST 75 H ALT 85 H Alkaline Phosphatase 132 H Total Protein 7.5 Albumin 3.2 L Urine Color Urine Appearance Urine pH Ur Specific [place] Urine Protein Urine Glucose (UA) Urine Ketones Urine Blood Urine Nitrite Urine Bilirubin Urine Urobilinogen Ur Leukocyte Esterase Urine WBC (Auto) Urine RBC (Auto) Urine Casts (Auto) U Epithel Cells (Auto) Urine Bacteria (Auto) Urine HCG, Qual 01/17/20 01/17/20 09:36 09:36 WBC RBC Hgb Hct MCV MCH MCHC RDW Plt Count MPV Absolute Neuts (auto) Neutrophils % Lymphocytes % Monocytes % Eosinophils % Basophils % Nucleated RBC % PT with INR 13.40 H INR 1.13 H PTT (Actin FS) 29.0 Sodium Potassium Chloride Carbon Dioxide Anion Gap BUN Creatinine Est GFR (CKD-EPI)AfAm Est GFR (CKD-EPI)NonAf POC Glucometer Random Glucose Hemoglobin A1c % 9.7 H Calcium Phosphorus Magnesium Total Bilirubin AST ALT Alkaline Phosphatase Total Protein Albumin Urine Color Urine Appearance Urine pH Ur Specific [place] Urine Protein Urine Glucose (UA) Urine Ketones Urine Blood Urine Nitrite Urine Bilirubin Urine Urobilinogen Ur Leukocyte Esterase Urine WBC (Auto) Urine RBC (Auto) Urine Casts (Auto) U Epithel Cells (Auto) Urine Bacteria (Auto) Urine HCG, Qual HOSPITAL COURSE: Date of Admission:01/17/20 Patient left AMA. was to be seen by urologist for need to operate for stone in R kidney. L sided pyelonephritis, sent Cefpodoxime x 5 d Date of Discharge: 01/17/20 Minutes to complete discharge: 36 Discharge Summary Problems reviewed: Yes Reason For Visit: PYRLONEPHRITIS Condition: Stable - Instructions Diet, Activity, Other Instructions: Your visit: You came to the hospital for pain in your left flank and back. You were found to have dilation of your left kidney which is chronic, but no obstructing stones on the left side You have a kidney stone on the right that is not causing any obstruction You were found to have an enlarged, fatty liver with elevated of your liver markers. Follow up: 1. Urologist Dr. Sloan as soon as possible. 2. Primary care doctor within 1 week. You will need to have a repeat CBC, and repeat your liver function tests. Medications: We have sent the antibiotic Vantin (Cefpodoxime) 200mg, take 1 pill 2 times per day for 5 days. You will complete this medication on 01/22/20. Take tylenol as needed for pain. Please return to the emergency room if you experience any worsening pain, fevers, chills/vomiting. Referrals: Adolfo Sloan MD [Staff Physician] - 01/20/20 Disposition: AGAINST MEDICAL ADVICE - Home Medications Comprehensive Discharge Medication List: Ambulatory Orders Cefpodoxime Proxetil [Vantin -] 200 mg PO BID 5 Days #10 tablet 01/17/20 Hydrochlorothiazide [Hctz -] 25 mg PO DAILY 01/17/20 Venlafaxine HCl ER [Effexor Xr -] 150 mg PO DAILY 01/17/20 ATTENDING PHYSICIAN STATEMENT I saw and evaluated the patient. I reviewed the resident's note and discussed the case with the resident. I agree with the resident's findings and plan as documented. SUBJECTIVE: OBJECTIVE: ASSESSMENT AND PLAN:
[2020-01-17] MEDS ORDERED: ACETAMINOPHEN 325 MG TABLET (FP) PO ONE (16:23)
--- NOTE | 2020-01-17 16:35 | CONSULT ---
Consult Consult Specialty:: Nephrology Reason for Consultation:: hyponatremia and nephrolithiasis - History of Present Illness Chief Complaint: left flank pain History of Present Illness: Pt is a 34 year old female with pmhx of left hydronephrosis, duplicate left kidney ureters, DM, nephrolithiasis and UTI who presents to the ER with left flank pain. She was found to have left hydro and low sodium. I was called to evaluate her. She says she feels better today. SHe denies pain. She denies hematuria. SHe says she has not had a stone workup as outpt but think she had calcium based stones. She does not maintain a diet and she stopped taking her metformin. - History Source History Provided By: Patient - Past Medical History ...LMP: 12/29/19 ...: No - Past Surgical History Past Surgical History: Yes: None - Alcohol/Substance Use Hx Alcohol Use: No - Smoking History Smoking history: Never smoked Have you smoked in the past 12 months: No Aproximately how many cigarettes per day: 0 Home Medications - Allergies Allergies/Adverse Reactions: Allergies Allergy/AdvReac Type Severity Reaction Status Date / Time No Known Allergies Allergy Verified 01/13/20 18:17 - Home Medications Home Medications: Ambulatory Orders Cefpodoxime Proxetil [Vantin -] 200 mg PO BID 5 Days #10 tablet 01/17/20 Hydrochlorothiazide [Hctz -] 25 mg PO DAILY 01/17/20 Venlafaxine HCl ER [Effexor Xr -] 150 mg PO DAILY 01/17/20 Family Medical History Family History: Denies Review of Systems - Review of Systems Constitutional: reports: No Symptoms Eyes: reports: No Symptoms HENT: reports: No Symptoms Neck: reports: No Symptoms Cardiovascular: reports: No Symptoms Respiratory: reports: No Symptoms Gastrointestinal: reports: No Symptoms Genitourinary: reports: No Symptoms Musculoskeletal: reports: No Symptoms Integumentary: reports: No Symptoms Neurological: reports: No Symptoms Endocrine: reports: No Symptoms Hematology/Lymphatic: reports: No Symptoms Physical Exam Vital Signs: Vital Signs Temperature 97.8 F 01/17/20 15:45 Pulse Rate 90 01/17/20 06:35 Respiratory Rate 18 01/17/20 15:45 Blood Pressure 129/76 01/17/20 06:35 O2 Sat by Pulse Oximetry (%) 97 01/17/20 15:45 Constitutional: Yes: Calm Eyes: Yes: Conjunctiva Clear HENT: Yes: Atraumatic Neck: Yes: Supple Cardiovascular: Yes: S1, S2 Respiratory: Yes: CTA Bilaterally Gastrointestinal: Yes: Normal Bowel Sounds, Soft Renal/: Yes: WNL Musculoskeletal: Yes: WNL Edema: No Neurological: Yes: Oriented Psychiatric: Yes: Oriented Labs: CBC, BMP 01/17/20 09:36 01/17/20 09:36 Imaging - Results Cat Scan: Report Reviewed Problem List - Problems (1) Left flank pain Code(s): R10.9 - UNSPECIFIED ABDOMINAL PAIN Assessment/Plan Current Medications Generic Name Dose Route Start Last Admin Trade Name Freq PRN Reason Stop Dose Admin Enoxaparin Sodium 40 mg 01/17/20 10:00 01/17/20 10:22 Lovenox - SQ Not Given DAILY [facility] Ceftriaxone Sodium 1 gm/ 50 mls @ 100 mls/hr 01/18/20 10:00 Dextrose IVPB DAILY [facility] Protocol Insulin Aspart 1 vial 01/17/20 07:00 01/17/20 11:47 Novolog Vial Sliding Scale - SQ Not Given ACHS [facility] Protocol Tamsulosin HCl 0.4 mg 01/17/20 08:30 01/17/20 08:54 Flomax - PO 0.4 mg DAILY@0830 [facility] Administration Venlafaxine HCl 150 mg 01/17/20 14:00 01/17/20 15:36 Effexor Xr - PO 150 mg DAILY [facility] Administration Laboratory Tests 01/16/20 01/16/20 01/17/20 22:00 22:15 02:00 Sodium 132 L Potassium 3.9 Creatinine 0.8 Hemoglobin A1c % Urine Protein 1+ H Urine Ketones Trace H COVID-19 ([facility]) Pending Hep A IgM Ab Confirm Hep Bs Antigen Hep B Core IgM Ab Hepatitis C Ab (EIA) 01/17/20 01/17/20 01/17/20 09:36 09:36 09:36 Sodium Potassium Creatinine 0.5 L Hemoglobin A1c % 9.7 H Urine Protein Urine Ketones COVID-19 ([facility]) Hep A IgM Ab Confirm Pending Hep Bs Antigen Pending Hep B Core IgM Ab Pending Hepatitis C Ab (EIA) Pending Impression 1. hydronephrosis 2. flank pain 3. DM 4. r/o uti 5. nephrolithiasis Plan - monitor renal function - follow cultures - sodium is normal - pt will need glucose control, spoke to her at length - will need outpt stone workup
[2020-01-18] MEDS ORDERED: CEFTRIAXONE 1 GM in DEXTROSE 5%-WATER - 50 ML IVPB SCH (10:00)
== END 2020-01-17 16:27 | disposition home or self-care (01) | DRG 690 ==
LOC: JER 19:44 → JERBED 01-17 02:08
PROVIDERS: ADMIT Internal Medicine
DX: N13.6 Pyonephrosis (principal); E87.1 Hypo-osmolality and hyponatremia; I10 Essential (primary) hypertension; E11.9 Type 2 diabetes mellitus without complications; E11.65 Type 2 diabetes mellitus with hyperglycemia; E66.9 Obesity, unspecified; F32.9 Major depressive disorder, single episode, unspecified; Z68.39 Body mass index [BMI] 39.0-39.9, adult; D72.829 Elevated white blood cell count, unspecified
CPT/HCPCS: 36415; 71046-TC-FY; 74176-TC; 76775-TC; 76856-TC; 80053; 80074; 81003; 82962; 83036; 83735; 84100; 84703; 85025; 85610; 85730; 87086; 93005; 93010; 99285-25; C9803; U0003

== ENCOUNTER 2021-03-12 10:13 | Day surgery (SDC) | payer OTHER ==
[2021-03-10 14:41] VITALS: BMI 40.6
[2021-03-12] MEDS ORDERED: PROPOFOL 20 ML ONE ×2 (11:22)
[2021-03-12 12:35] VITALS: BP 125/81; PULSE 77; TEMP 98.1
== END 2021-03-12 13:20 | disposition home or self-care (01) ==
LOC: FASU-ENDO 10:13
PROVIDERS: ATTEND Internal Medicine Gastroenterology
PROC: 0DBL8ZX Excision of Transverse Colon, Via Natural or Artificial Opening Endoscopic, Diagnostic (ICD-10-PCS; 2021-03-12)
PROC: 0DBP8ZX Excision of Rectum, Via Natural or Artificial Opening Endoscopic, Diagnostic (ICD-10-PCS; 2021-03-12)
PROC: 0DBM8ZX Excision of Descending Colon, Via Natural or Artificial Opening Endoscopic, Diagnostic (ICD-10-PCS; 2021-03-12)
PROC: 0DBH8ZX Excision of Cecum, Via Natural or Artificial Opening Endoscopic, Diagnostic (ICD-10-PCS; 2021-03-12)
PROC: 0DBK8ZX Excision of Ascending Colon, Via Natural or Artificial Opening Endoscopic, Diagnostic (ICD-10-PCS; principal; 2021-03-12 11:51)
DX: K64.8 Other hemorrhoids (principal); K63.89 Other specified diseases of intestine; R19.7 Diarrhea, unspecified
CPT/HCPCS: 82962; 84703; 88305-TC

== ENCOUNTER 2021-07-11 23:31 | Emergency (ER) | payer OTHER ==
[2021-07-12 00:20] VITALS: BMI 40.6
[2021-07-12] MEDS ORDERED: SODIUM CHLORIDE 0.9% 500 ML INFUS.BAG IV ONE (00:54)
[2021-07-12] MEDS ORDERED: ACETAMINOPHEN 1000 MG/100 ML BAG IVPB ONE (00:54)
[2021-07-12] MEDS ORDERED: ACETAMINOPHEN INJECTION 100 ML IVPB ONE (00:55)
[2021-07-12 01:26] LABS: EOS % 5.4 % (0-4.5); HEMATOCRIT 39.8 % (32.4-45.2); LYMPH % 30.4 % (8-40); MCH 23.8 pg (25.7-33.7); MCHC 32.6 g/dl (32.0-36.0); MEAN PLT VOLUME 6.9 fl (7.5-11.1); MONO % 6.6 % (3.8-10.2); NEUT % 56.6 % (42.8-82.8); PLATELET COUNT 472 10^3/uL (134-434); RBC 5.45 M/mm3 (3.60-5.2); RDW 14.7 % (11.6-15.6); WHITE BLOOD COUNT 12.2 K/mm3 (4.0-10.0)
[2021-07-12 01:34] LABS: HCG,QUALITATIVE URINE Negative
[2021-07-12 01:35] LABS: EPI CELLS 13 /uL (0-25.1); HYALINE CASTS 0 /uL (0-3.1); PH,URINE 6.5 (5.0-8.0); URINE APPEARANCE CLEAR; URINE BACTERIA 75 /uL (0-1359); URINE BILIRUBIN NEGATIVE (NEGATIVE); URINE COLOR YELLOW; URINE GLUCOSE (UA) NEGATIVE (NEGATIVE); URINE KETONE NEGATIVE (NEGATIVE); URINE LEUK ESTERASE 1+ (NEGATIVE); URINE NITRITE NEGATIVE (NEGATIVE); URINE PROTEIN NEGATIVE (NEGATIVE); URINE RBC 5 /uL (0-23.9); URINE UROBILINOGEN 0.2 mg/dL (0.2-1.0); URINE WBC 22 /uL (0-25.8)
[2021-07-12 01:43] LABS: CALCIUM 8.9 mg/dL (8.5-10.1)
[2021-07-12 01:44] LABS: ALBUMIN 3.4 g/dl (3.4-5.0); BLOOD UREA NITROGEN 6.4 mg/dL (7-18)
[2021-07-12 01:47] LABS: CREATININE 0.6 mg/dL (0.55-1.3)
[2021-07-12 01:48] LABS: BILIRUBIN,TOTAL 0.2 mg/dL (0.2-1); TOT PROT 7.8 g/dl (6.4-8.2)
[2021-07-12] MEDS ORDERED: KETOROLAC TROMETHAMINE 15 MG/ML VIAL IVPUSH ONE (02:04)
[2021-07-12] MEDS ORDERED: morphine CARPU-JECT 4 MG/1 ML DISP.SYRIN IVPUSH ONE (02:04)
[2021-07-12] MEDS ORDERED: morphine SULFATE 4 MG/ML VIAL ONE (02:16)
[2021-07-12] MEDS ORDERED: KETOROLAC TROMETHAMINE 15 MG/ML VIAL ONE (02:16)
[2021-07-12 05:28] VITALS: BP 134/82; PULSE 83; TEMP 98.1
== END 2021-07-12 06:16 | disposition home or self-care (01) ==
LOC: JER 23:31
PROC: 3E033GC Introduction of Other Therapeutic Substance into Peripheral Vein, Percutaneous Approach (ICD-10-PCS; principal; 2021-07-11)
DX: R10.9 Unspecified abdominal pain (principal)
CPT/HCPCS: 36415; 74176-TC; 80053; 81003; 84703; 85025; 87086; 99285-25

== ENCOUNTER 2022-06-06 22:45 | Emergency (ER) | payer OTHER ==
[2022-06-06 22:49] VITALS: BP 141/78; PULSE 84; RESP 17; TEMP 98.6; BMI 39.6
[2022-06-07] MEDS ORDERED: ACETAMINOPHEN 1000 MG/100 ML BAG IVPB ONE (00:31)
[2022-06-07] MEDS ORDERED: SODIUM CHLORIDE 0.9% 500 ML INFUS.BAG IV ONE (00:31)
[2022-06-07] MEDS ORDERED: METOCLOPRAMIDE HCL INJECTION 10 MG/2 ML VIAL IVPB ONE (00:31)
[2022-06-07] MEDS ORDERED: ACETAMINOPHEN INJECTION 100 ML IVPB ONE (00:38)
[2022-06-07] MEDS ORDERED: METOCLOPRAMIDE HCL INJECTION 10 MG/2 ML VIAL ONE (00:38)
[2022-06-07 01:00] LABS: BASO % 0.5 % (0-2.0); EOS % 3.9 % (0-4.5); HEMATOCRIT 37.3 % (32.4-45.2); HEMOGLOBIN 12.1 GM/dL (10.7-15.3); LYMPH % 29.3 % (8-40); MCH 23.8 pg (25.7-33.7); MCHC 32.5 g/dl (32.0-36.0); MEAN CELL VOLUME 73.2 fl (80-96); MEAN PLT VOLUME 6.8 fl (7.5-11.1); MONO % 6.8 % (3.8-10.2); NEUT % 59.5 % (42.8-82.8); PLATELET COUNT 456 10^3/uL (134-434); RBC 5.09 M/mm3 (3.60-5.2); RDW 14.9 % (11.6-15.6); WHITE BLOOD COUNT 14.2 K/mm3 (4.0-10.0)
[2022-06-07 01:05] LABS: HCG,QUALITATIVE URINE Negative
[2022-06-07 01:06] LABS: EPI CELLS 19 /uL (0-25.1); HYALINE CASTS 0 /uL (0-3.1); PH,URINE 5.5 (5.0-8.0); URINE APPEARANCE CLEAR; URINE BACTERIA 447 /uL (0-1359); URINE BILIRUBIN NEGATIVE (NEGATIVE); URINE COLOR YELLOW; URINE GLUCOSE (UA) NEGATIVE (NEGATIVE); URINE KETONE NEGATIVE (NEGATIVE); URINE LEUK ESTERASE TRACE (NEGATIVE); URINE NITRITE NEGATIVE (NEGATIVE); URINE PROTEIN NEGATIVE (NEGATIVE); URINE RBC 20 /uL (0-23.9); URINE UROBILINOGEN 0.2 mg/dL (0.2-1.0); URINE WBC 29 /uL (0-25.8)
[2022-06-07 01:24] LABS: CALCIUM 8.7 mg/dL (8.5-10.1)
[2022-06-07 01:25] LABS: ALBUMIN 3.4 g/dl (3.4-5.0); BLOOD UREA NITROGEN 11.6 mg/dL (7-18); MAGNESIUM 2.2 mg/dL (1.8-2.4)
[2022-06-07 01:28] LABS: CREATININE 0.7 mg/dL (0.55-1.3)
[2022-06-07 01:29] LABS: BILIRUBIN,TOTAL 0.3 mg/dL (0.2-1); TOT PROT 7.6 g/dl (6.4-8.2)
== END 2022-06-07 02:41 | disposition left against medical advice (07) ==
LOC: JERFT 22:45 → JER 22:45
PROC: 3E0333Z Introduction of Anti-inflammatory into Peripheral Vein, Percutaneous Approach (ICD-10-PCS; principal; 2022-06-06)
PROC: 3E033GC Introduction of Other Therapeutic Substance into Peripheral Vein, Percutaneous Approach (ICD-10-PCS; 2022-06-06)
DX: R51.9 Headache, unspecified (principal)
CPT/HCPCS: 36415; 70450-TC; 80053; 81003; 82962; 83735; 84703; 85025; 87086; 99284-25

== ENCOUNTER 2023-03-01 11:11 | Day surgery (SDC) | payer OTHER ==
[2023-02-15 18:44] VITALS: BMI 34.0
[2023-03-01 14:23] VITALS: TEMP 98
[2023-03-01 14:26] VITALS: BP 118/75; PULSE 76; RESP 18
== END 2023-03-01 15:15 | disposition home or self-care (01) ==
LOC: FASU-ENDO 11:11
PROVIDERS: ATTEND Internal Medicine Gastroenterology
PROC: 0DBL8ZX Excision of Transverse Colon, Via Natural or Artificial Opening Endoscopic, Diagnostic (ICD-10-PCS; 2023-03-01)
PROC: 0DBM8ZX Excision of Descending Colon, Via Natural or Artificial Opening Endoscopic, Diagnostic (ICD-10-PCS; 2023-03-01)
PROC: 0DBK8ZX Excision of Ascending Colon, Via Natural or Artificial Opening Endoscopic, Diagnostic (ICD-10-PCS; principal; 2023-03-01 13:51)
DX: Z12.11 Encounter for screening for malignant neoplasm of colon (principal); K63.89 Other specified diseases of intestine; K64.1 Second degree hemorrhoids; K64.8 Other hemorrhoids; R19.7 Diarrhea, unspecified
CPT/HCPCS: 81025; 82962; 88305-TC